=== PATIENT | male | born 2000 | race Caucasian/White ===

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

== ENCOUNTER 2024-02-13 20:47 | Emergency (ER) | payer OTHER, SELFPAY ==
[2024-02-13 20:47] VITALS: BP 144/89; PULSE 70; RESP 20; TEMP 37.1; O2SAT 98; BMI 25.1
--- NOTE | 2024-02-13 21:47 | [facility].EDGENADL ---
Discharge Plan Disposition Patient Disposition: Home, Self-Care Prescriptions Prescriptions: New prochlorperazine maleate [Compazine] 10 mg tablet 10 mg PO Q6H PRN (Reason: nausea and vomiting) 1 Days Qty: 20 0RF No Action ibuprofen 600 MG tablet 600 mg PO Q8HP PRN (Reason: Moderate To Severe Pain) Qty: 15 0RF Referrals Follow up/Referrals: Rose Marie Pitt MD [Primary Care Provider] - See instructions Activity Restrictions/Add. Instructions Additional Instructions/Restrictions: When you get migraines, 1000 mg Tylenol, 600 mg ibuprofen, 25 to 50 mg of Benadryl, 10 mg Compazine, fluids and lay down in dark room. Talk to family doctor about migraine abortive medications. Follow-up with them in about 48 hours to establish care and ensure improvement in symptoms. Return to the emergency department for any other concerns. Clinical Impressions Clinical Impression: Migraine Discharge ED Provider: Jose A Bustillos General Adult HPI General Chief complaint: Headache Stated complaint: h/a Time Seen by Provider: 02/13/24 21:32 Mode of Arrival: Ambulatory Source of Information: Patient Limitations: No Limitations Description of Symptoms (Recalled from ER Triage Doc. by RN): pt cc is a headache with hx of migraines and does not want any needles, pt states it has been going on x1 day History of Present Illness HPI narrative: Please note that above description of symptoms, in this electronic medical record under categorization of recalled from ER triage doctor by RN are reflective of an initial nursing assessment, however, is not reflective of my full history and physical exam that was personally taken and clarified. Consequentially, this preceding description of symptoms, which may include the patient's categorized chief complaint in the EMR, do not reflect my personal clinical impression, and the ultimate description of history of present illness and patient stated complaints should be deferred to this section of the note. Unless stated otherwise or congruent with this section of the note, additional signs, symptoms, or incongruence should be interpreted as inaccurate with my clinical impression. Related Data Previous Rx's Medication Instructions Recorded ibuprofen 600 mg tablet 600 mg PO Q8HP PRN Moderate To 06/01/18 Severe Pain #15 tabs prochlorperazine maleate 10 mg 10 mg PO Q6H PRN nausea and 02/13/24 tablet (Compazine) vomiting 24 hours #20 tabs Allergies Allergy/AdvReac Type Severity Reaction Status Date / Time Penicillins [PENICILLINS] Allergy Mild Verified 03/22/21 16:21 [facility] Disclaimer: The information contained in this section may have been updated after the patient was seen, as this information can be updated by other users. Social History Smoking Status: Current every day smoker alcohol intake: never current occupational status: student Travel in the last 8 weeks: None ROS Obtained: Yes All systems reviewed & no additional complaints except as documented Physical Exam General General appearance: alert and in no apparent distress Head Head exam: atraumatic and normocephalic Eye Eye exam: Present normal appearance, PERRL and EOMI ENT ENT exam: Present mucous membranes moist Neck Neck exam: Present normal inspection, full ROM and trachea midline Respiratory Respiratory exam: Absent respiratory distress, wheezes, stridor, accessory muscle use or prolonged expiratory phase Cardiovascular Cardiovascular exam: Present normal rhythm Abdominal Exam Abdominal exam: Present soft; Absent distention, tenderness, guarding, rebound or rigidity Extremities Exam Extremities exam: Absent edema Neurological Exam Neurological exam: Present alert, oriented X3, CN II-XII intact and normal gait; Absent motor sensory deficit Skin Skin exam: Present warm and dry; Absent diaphoresis or erythema Medical Decision Making Medical Records Medical records reviewed: Yes I reviewed the patient's medical records. Nickolas Inquiry Pt receiving controlled substance: No Nickolas was queried for this patient: No Vital Signs: 02/13/24 20:47 Temperature 98.7 F Temperature Source Oral Pulse Rate [Right Radial] 70 Respiratory Rate 20 Blood Pressure [Right Arm] 144/89 H Blood Pressure Mean [Right Arm] 107 02 Sat by Pulse Oximetry 98 Oxygen Delivery Method Room Air Medical Decision Narrative: 23-year-old male history of migraines presenting with migraine. Started yesterday, 02/11, feels like it is in the crown of his head, does not radiate. Mild photophobia without phonophobia. No neurologic deficits. Has tried taking ibuprofen this does not help so came for further evaluation. History was obtained via conversation with patient. On arrival, patient hemodynamically stable, alert, oriented x4, appropriate, GCS 15, moving all extremities spontaneously, pupils equal and reactive to light. Full physical exam performed and significant for very well-appearing male sitting in dark room, appears uncomfortable, but neurologically intact. Differential includes headache, migraine, among other. IV migraine cocktail was offered, patient declining due to needles. He was given oral migraine cocktail. Feels appropriate and comfortable going home, I feel this is appropriate. I counseled him on talking to his family doctor about getting migraine abortive medications given frequency of migraines. He agrees. Because patient at baseline without signs or symptoms of clinical decompensation, deemed appropriate for discharge. Results were relayed to patient who voiced understanding and were agreeable to outpatient management and follow up. I discussed my clinical impression with patient and answered all questions. At this time, the evidence for any other entities in the differential is insufficient to warrant any further testing or ED observation. This was explained as well. Advisory was given that persistent or worsening symptoms require further evaluation. I confirmed the understanding of this discussion. Critical Care Critical Care Time Critical Care Time: No
[2024-02-13] MEDS: IBUPROFEN 600 MG TABLET PO (21:55)
[2024-02-13] MEDS: PROCHLORPERAZINE 10MG TABLET 10 MG PO (21:55)
[2024-02-13] MEDS: diphenhydrAMINE 25MG CAPSULE 50 MG PO (21:55)
[2024-02-13] MEDS: DEXAMETHASONE 4MG TABLET 10 MG PO (21:55)
[2024-02-13] MEDS: ACETAMINOPHEN 500MG TAB 1000 MG PO (21:55)
[2024-02-13 21:56] VITALS: BP 123/80; PULSE 69; RESP 18; TEMP 36.8; O2SAT 99
== END 2024-02-13 21:57 | disposition home or self-care (01) ==
PROVIDERS: Emergency Provider Emergency Medicine; PCP Family Medicine
DX: G43.909 Migraine, unspecified, not intractable, without status migrainosus (principal)
CPT/HCPCS: 99283